=== PATIENT | female | born 1935 | race Caucasian/White ===

== ENCOUNTER → 2018-02-20 | Outpatient (CLI) | payer MEDICARE, OTHER ==
[~2018-02-20] MED LIST: AMLO5 PO; ASPI325 PO; CALCA500S6; GLUC500; HYDCHL25 PO; Hydroxychloroq200 MG PO; LEVSOD50 PO; LIDO2TG30 TOP; METO100ER PO; Nitrostat0.4 MG SL; PRED5 PO; SIMV40 PO; [UNRECOGNIZED DRUG - CODE]
[2018-02-22 15:07] LABS: HPV 16 Negative (Negative); HPV 18 Negative (Negative); HPV OTHER HR TYPES Positive (Negative)
== END | disposition home or self-care (01) ==
LOC: LAB SHORT 14:41 → LAB 14:41
PROVIDERS: Nurse Practitioner Obstetrics & Gynecology
DX: Z01.419 Encounter for gynecological examination (general) (routine) without abnormal findings (principal)
CPT/HCPCS: 87624; G0123

== ENCOUNTER → 2018-03-27 | Outpatient (CLI) | payer MEDICARE, OTHER | END | disposition home or self-care (01) | LOC: LAB SHORT 10:01 → LAB 10:01 | DX: N76.0 Acute vaginitis (principal); N90.9 Noninflammatory disorder of vulva and perineum, unspecified | CPT/HCPCS: 87070; 87205; 87529 ==

== ENCOUNTER → 2018-04-08 | Outpatient (CLI) | payer MEDICARE, OTHER | END | disposition home or self-care (01) | LOC: LAB SHORT 12:37 → PLD 12:37 | DX: L30.8 Other specified dermatitis (principal) | CPT/HCPCS: 88305; 88312 ==

== ENCOUNTER 2018-06-28 06:55 | Day surgery (SDC) | payer MEDICARE, OTHER ==
[~2018-06-28] VITALS: Ht 160 cm; Wt 86.5 kg
--- NOTE | 2018-06-28 07:46 | NUR ---
06/28/18 0746 Cheryl Washington 2 MISSED IV INRH BY KENNETH VEIN BLEW 1 GOOD IV IN RAC BY KENNETH PT TOW
== END 2018-06-28 09:00 | disposition home or self-care (01) ==
LOC: ORSCSDS 06:55
PROVIDERS: Internal Medicine Gastroenterology
PROC: 0DB68ZX Excision of Stomach, Via Natural or Artificial Opening Endoscopic, Diagnostic (ICD-10-PCS; principal; 2018-06-28 08:15)
DX: K31.89 Other diseases of stomach and duodenum (principal); K29.70 Gastritis, unspecified, without bleeding; K31.7 Polyp of stomach and duodenum; K44.9 Diaphragmatic hernia without obstruction or gangrene; I10 Essential (primary) hypertension; E03.9 Hypothyroidism, unspecified; Z79.82 Long term (current) use of aspirin; Z79.899 Other long term (current) drug therapy
CPT/HCPCS: J0330; J0461; J1980; J2405; J2704; J7120

== ENCOUNTER → 2018-07-10 | Outpatient (CLI) | payer MEDICARE, OTHER | LOC: LAB 16:24 → LAB SHORT 16:24 | DX: N76.3 Subacute and chronic vulvitis (principal) | CPT/HCPCS: 87070; 87205 ==

== ENCOUNTER 2019-07-14 09:11 | Inpatient (IN) | payer MEDICARE, OTHER ==
[~2019-07-14] VITALS: Ht 160 cm; Wt 92.1 kg
[~2019-07-14 09:11] MED LIST changes: -AMLO5 PO; -LEVSOD50 PO; -SIMV40 PO
[2019-07-14] MEDS ORDERED: Acetaminophen-1 EAC2 PO (09:25)
[2019-07-14 10:06] LABS: Hematocrit 29.5 % (33.0-51.0); Hemoglobin 9.8 g/dL (11.5-16.0); Mean Corpuscular HGB 33.9 pg (26.0-34.0); Mean Corpuscular HGB Conc 33.2 g/dL (31.5-36.5); Mean Corpuscular Volume 102 fL (80-100); Mean Platelet Volume 10.5 fL (9.1-12.4); NRBC ABSOLUTE 0.11 K/mm3 (0.00-0.02); NRBC Auto 1.2 /100 WBC (0.0-0.2); Platelet Count 240 K/mm3 (150-400); RDW Coefficient Variation 16.4 % (11.7-14.2); RDW Standard Deviation 59.7 fL (35.1-46.3); Red Blood Cell Count 2.89 M/mm3 (3.80-5.20); White Blood Cell Count 9.32 K/mm3 (4.00-11.30)
[2019-07-14 10:19] LABS: Source, Urine Clean Catch
[2019-07-14 10:21] LABS: Alanine Aminotransfer (ALT/SGP 106 U/L (12-78); Albumin, Blood 2.1 g/dL (3.4-5.0); Albumin/Globulin Ratio 0.6 (0.8-1.8); Alk Phos 59 U/L (50-136); Anion Gap 9 mmol/L (6-16); Aspartate Aminotrans (AST/SGOT 89 U/L (12-37); Bilirubin, Total 0.4 mg/dL (0.1-1.0); Blood Urea Nitrogen 14 mg/dL (8-24); Bun/Creatinine Ratio 24.1 (12.0-20.0); CO2, Blood 23 mmol/L (21-32); Calcium, Blood 8.9 mg/dL (8.5-10.1); Chloride, Blood 91 mmol/L (98-108); Creatinine, Blood 0.58 mg/dL (0.40-1.00); Globulin, Blood 3.5 g/dL (2.2-4.0); Glomerular Filtration Rate >60 (60-); Glucose, Blood 91 mg/dL (70-99); Potassium, Blood 4.5 mmol/L (3.5-5.5); Sodium, Blood 123 mmol/L (136-145); Total Protein, Blood 5.6 g/dL (6.4-8.2); Troponin I 0.047 ng/mL (0.000-0.040)
[2019-07-14 10:25] LABS: Bilirubin, Urine Neg (Neg); Blood, Urine 3+ (Neg); Glucose Qualitative, Urine Neg (Neg); Ketones, Urine Neg (Neg); Leukocyte Esterase, Urine 1+ (Neg); Nitrite, Urine Neg (Neg); Protein, Urine 2+ (Neg); Urobilinogen, Urine NORM (Normal)
[2019-07-14 10:29] LABS: BAND PERCENT MAN 6 % (0-8); BASOPHILS PERCENT MAN 0 % (0-2); EOSINOPHILS PERCENT MAN 0 % (0-6); LYMPHOCYTES ABSOLUTE MAN 2.23 K/mm3 (0.84-5.20); LYMPHOCYTES PERCENT MAN 24 % (21-46); METAMYELOCYTE ABSOLUTE MAN 0.09 K/mm3 (0.00-0.00); METAMYELOCYTE PERCENT MAN 1 % (0-0); MONOCYTES ABSOLUTE MAN 0.93 K/mm3 (0.16-1.47); MONOCYTES PERCENT MAN 10 % (4-13); MYELOCYTE ABSOLUTE MAN 0.37 K/mm3 (0.00-0.00); MYELOCYTE PERCENT MAN 4 % (0-0); NEUTROPHILS ABSOLUTE MAN 5.68 K/mm3 (1.96-9.15); SEG NEUTROPHILS PERCENT MAN 55 % (41-73); TOTAL CELLS COUNTED 100
[2019-07-14 10:36] LABS: Appearance, Urine Clear (Clear); Color, Urine Yellow (P-Yellow)
[2019-07-14 10:37] LABS: Bacteria Rare /hpf; Squamous Epithelial Cells Rare /hpf (Few); White Blood Cells, Urine Not Seen /hpf (0-5)
[2019-07-14] MEDS ORDERED: OXYC5 PO (12:00)
[2019-07-14] MEDS ORDERED: Fentanyl1 EACH TOP (12:01)
[2019-07-14] MEDS ORDERED: Methotrexate2.5 MG PO (12:02)
[2019-07-14] MEDS ORDERED: FOLI1 PO (12:03)
[2019-07-14] MEDS ORDERED: TELMISARTAN40 MG PO (12:04)
[2019-07-14] MEDS ORDERED: AMLO5 PO (12:04)
[2019-07-14] MEDS ORDERED: HYDCHL25 PO (12:05)
[2019-07-14] MEDS ORDERED: EUTHYROX50 MCG PO (12:06)
[2019-07-14] MEDS ORDERED: Simvastatin40 MG PO (12:06)
[2019-07-14] MEDS ORDERED: Prednisone10 MG PO (12:19)
[2019-07-14 12:51] LABS: Adenovirus Not Detected (NOT DETECT); Bordetella pertussis Not Detected (NOT DETECT); Chlamydophila pneumoniae Not Detected (NOT DETECT); Coronavirus 229E Not Detected (NOT DETECT); Coronavirus HKU1 Not Detected (NOT DETECT); Coronavirus NL63 Not Detected (NOT DETECT); Coronavirus OC43 Not Detected (NOT DETECT); Human Metapneumovirus Not Detected (NOT DETECT); Human Rhinovirus/Enterovirus Not Detected (NOT DETECT); Influenza A/2009-H1 Not Detected (NOT DETECT); Influenza A/H1 Not Detected (NOT DETECT); Influenza A/H3 Not Detected (NOT DETECT); Influenza B Not Detected (NOT DETECT); Mycoplasma pneumoniae Not Detected (NOT DETECT); Parainfluenza Virus 1 Not Detected (NOT DETECT); Parainfluenza Virus 2 Not Detected (NOT DETECT); Parainfluenza Virus 3 Not Detected (NOT DETECT); Parainfluenza Virus 4 Not Detected (NOT DETECT); Respiratory Syncytial Virus Not Detected (NOT DETECT)
[2019-07-14 16:29] LABS: Potassium, Blood 4.7 mmol/L (3.5-5.5); Uric Acid, Blood 6.8 mg/dL (2.6-6.0)
--- NOTE | 2019-07-14 17:39 | NUR ---
echocardiogram complete
--- NOTE | 2019-07-14 17:52 | NUR ---
SHIFT SUMMARY: ADMIT FROM ER DURING SHIFT. PLACED ON ENHANCED PRECAUTIONS FOR PENDING COVID TEST. A/A/OX4. REPORTS HX OF LUPUS WITH SKIN BLISTERS FROM LUPUS. LARGE ULCERATIONS ON ADRIANNA AREA EXTENDING BILATERALLY TO THIGHS. CARTWRIGHT IN PLACE FROM ED DUE TO INCONTINANCE TO KEEP URINE OUT OF AREA. CARTWRIGHT DRAINING CLEAR URINE. 6L 02 VIA NC TO KEEP SATS ABOVE 94%. WILL CONTINUE TO MONITOR UNTIL SHIFT CHANGE.
[2019-07-15 06:25] LABS: Hematocrit 32.2 % (33.0-51.0); Hemoglobin 10.5 g/dL (11.5-16.0); Mean Corpuscular HGB 33.7 pg (26.0-34.0); Mean Corpuscular HGB Conc 32.6 g/dL (31.5-36.5); Mean Corpuscular Volume 103 fL (80-100); NRBC ABSOLUTE 0.18 K/mm3 (0.00-0.02); NRBC Auto 1.6 /100 WBC (0.0-0.2); Platelet Count 270 K/mm3 (150-400); RDW Coefficient Variation 16.9 % (11.7-14.2); RDW Standard Deviation 62.1 fL (35.1-46.3); Red Blood Cell Count 3.12 M/mm3 (3.80-5.20); White Blood Cell Count 11.51 K/mm3 (4.00-11.30)
[2019-07-15 07:01] LABS: BAND PERCENT MAN 12 % (0-8); BASOPHILS PERCENT MAN 0 % (0-2); EOSINOPHILS ABSOLUTE MAN 0.57 K/mm3 (0.00-0.68); EOSINOPHILS PERCENT MAN 5 % (0-6); LYMPHOCYTES ABSOLUTE MAN 1.72 K/mm3 (0.84-5.20); LYMPHOCYTES PERCENT MAN 15 % (21-46); METAMYELOCYTE ABSOLUTE MAN 0.34 K/mm3 (0.00-0.00); METAMYELOCYTE PERCENT MAN 3 % (0-0); MONOCYTES ABSOLUTE MAN 1.26 K/mm3 (0.16-1.47); MONOCYTES PERCENT MAN 11 % (4-13); MYELOCYTE ABSOLUTE MAN 0.34 K/mm3 (0.00-0.00); MYELOCYTE PERCENT MAN 3 % (0-0); NEUTROPHILS ABSOLUTE MAN 7.25 K/mm3 (1.96-9.15); SEG NEUTROPHILS PERCENT MAN 51 % (41-73); TOTAL CELLS COUNTED 100
--- NOTE | 2019-07-15 07:26 | NUR ---
SHIFT SUMMARY NO ACUTE CHANGES NOTED THROUGH THE NIGHT. PT REMAINS ON 6 L VIA NC, O2 SATS >91%. PT ENC TO DEEP BREATH & COUGH, SHE STATES IT HURTS HER WOUNDS SO SHE DOES NOT WANT TO. PT EDUCATION & ENC PROVIDED PRN. ADRIANNA WOUNDS CLEANSED WITH WOUND TERMINAL SUPERINTENDENT THIS AM, SILVADINE CREAM APPLIED PER EMAR. PT IS REFUSING TO BE TURNED Q2 HRS DESPITE EDUCATION. PAIN MEDICATED PER EMAR. CARTWRIGHT REMAINS PATENT, BELOW BLADDER, DRAINING CLEAR,YELLOW URINE. REPORT GIVEN TO DAY RN, CALL LIGHT IN REACH.
[2019-07-15 08:19] LABS: Alanine Aminotransfer (ALT/SGP 94 U/L (12-78); Albumin, Blood 2.2 g/dL (3.4-5.0); Albumin/Globulin Ratio 0.6 (0.8-1.8); Alk Phos 66 U/L (50-136); Anion Gap 8 mmol/L (6-16); Aspartate Aminotrans (AST/SGOT 58 U/L (12-37); Bilirubin, Total 0.4 mg/dL (0.1-1.0); Blood Urea Nitrogen 13 mg/dL (8-24); Bun/Creatinine Ratio 18.4 (12.0-20.0); CO2, Blood 24 mmol/L (21-32); Calcium, Blood 8.9 mg/dL (8.5-10.1); Chloride, Blood 93 mmol/L (98-108); Creatinine, Blood 0.71 mg/dL (0.40-1.00); Globulin, Blood 3.6 g/dL (2.2-4.0); Glomerular Filtration Rate >60 (60-); Glucose, Blood 76 mg/dL (70-99); Magnesium, Blood 1.8 mg/dL (1.6-2.4); Potassium, Blood 4.7 mmol/L (3.5-5.5); Sodium, Blood 125 mmol/L (136-145); Total Protein, Blood 5.8 g/dL (6.4-8.2); Troponin I 0.048 ng/mL (0.000-0.040)
--- NOTE | 2019-07-15 17:30 | NUR ---
SHIFT SUMMARY: PT ALERT AND ORIENTED TO BASELINE, COVID TESTING STILL PENDING AT THIS TIME. PT ON IV AND ORAL ABO FOR VIRAL PNA. PT CURRENTLY ON 4L OF O2 VIA NC PT SATS ABOVE 94%, SLIGHT WHEEZING UPON EXPIRATION, LASIX 40 MG GIVEN X 1 DOSE. SLIGHT SOB WITH EXERTION. THE REST OF THE VITALS STABLE, AFEBRILE. PT HAS BEEN C/O A LOT OF PAIN NEW ORDER FOR TORADOL RECEIVED Q12 HRS X 3DAYS, AND WAS EFFECTIVE, PT HAS BEEN RESTING A LOT SINCE THE LAST ADMINISTRATION, PT STATED HER PAIN MOSTLY IN THE GROIN AND THE ULCER ON THE RIGHT MIDDLE FINGER. PT CATHETER DRAINING VIA GRAVITY, URINE JULES YELLOW IN COLOR. PT HAS BEEN RESTING IN BED, ABLE TO MAKE NEEDS KNOWN, COOPERATIVE WITH CARES. CALL LIGHTS WITHIN REACH WILL MONITOR
[2019-07-16 04:32] LABS: Hematocrit 29.5 % (33.0-51.0); Hemoglobin 9.7 g/dL (11.5-16.0); Mean Corpuscular HGB 33.7 pg (26.0-34.0); Mean Corpuscular HGB Conc 32.9 g/dL (31.5-36.5); Mean Corpuscular Volume 102 fL (80-100); Mean Platelet Volume 10.2 fL (9.1-12.4); NRBC ABSOLUTE 0.05 K/mm3 (0.00-0.02); NRBC Auto 0.5 /100 WBC (0.0-0.2); Platelet Count 273 K/mm3 (150-400); RDW Coefficient Variation 17.1 % (11.7-14.2); RDW Standard Deviation 63.2 fL (35.1-46.3); Red Blood Cell Count 2.88 M/mm3 (3.80-5.20); White Blood Cell Count 10.84 K/mm3 (4.00-11.30)
[2019-07-16 04:54] LABS: Alanine Aminotransfer (ALT/SGP 73 U/L (12-78); Albumin, Blood 1.9 g/dL (3.4-5.0); Albumin/Globulin Ratio 0.6 (0.8-1.8); Alk Phos 62 U/L (50-136); Anion Gap 7 mmol/L (6-16); Aspartate Aminotrans (AST/SGOT 45 U/L (12-37); Bilirubin, Total 0.4 mg/dL (0.1-1.0); Blood Urea Nitrogen 14 mg/dL (8-24); Bun/Creatinine Ratio 20.7 (12.0-20.0); CO2, Blood 26 mmol/L (21-32); Calcium, Blood 8.5 mg/dL (8.5-10.1); Chloride, Blood 93 mmol/L (98-108); Creatinine, Blood 0.68 mg/dL (0.40-1.00); Glomerular Filtration Rate >60 (60-); Glucose, Blood 75 mg/dL (70-99); Potassium, Blood 4.4 mmol/L (3.5-5.5); Sodium, Blood 126 mmol/L (136-145); Total Protein, Blood 4.9 g/dL (6.4-8.2)
[2019-07-16 04:59] LABS: Percent Saturation 9.8 % (15.0-50.0)
--- NOTE | 2019-07-16 06:11 | NUR ---
SHIFT SUMMARY NO ACUTE CHANGES NOTED THROUGH THE NIGHT. VSS, O2 SATS >94% ON 4L VIA NC. COUGH/DB ENC. PAIN MEDICATED PER EMAR. ADRIANNA/FINGER WOUNDS CLEANSED DRESSED, PT CONSENT SIGNED, PICTURES TAKEN & PLACED IN THE CHART. PT IS TOLERATING PO INTAKE. CARTWRIGHT REMAINS PATENT, BELOW BLADDER DRAINING CLEAR YELLOW URINE. CALL LIGHT IN REACH. WCTM
[2019-07-16 06:29] LABS: BAND PERCENT MAN 11 % (0-8); BASOPHILS ABSOLUTE MAN 0.21 K/mm3 (0.00-0.23); BASOPHILS PERCENT MAN 2 % (0-2); EOSINOPHILS ABSOLUTE MAN 0.43 K/mm3 (0.00-0.68); EOSINOPHILS PERCENT MAN 4 % (0-6); LYMPHOCYTES % ATYPICAL MANUAL 1 % (0-0); LYMPHOCYTES ABSOLUTE MAN 1.51 K/mm3 (0.84-5.20); LYMPHOCYTES PERCENT MAN 13 % (21-46); METAMYELOCYTE ABSOLUTE MAN 0.43 K/mm3 (0.00-0.00); METAMYELOCYTE PERCENT MAN 4 % (0-0); MONOCYTES ABSOLUTE MAN 0.65 K/mm3 (0.16-1.47); MONOCYTES PERCENT MAN 6 % (4-13); MYELOCYTE ABSOLUTE MAN 0.32 K/mm3 (0.00-0.00); MYELOCYTE PERCENT MAN 3 % (0-0); NEUTROPHILS ABSOLUTE MAN 7.26 K/mm3 (1.96-9.15); SEG NEUTROPHILS PERCENT MAN 56 % (41-73); TOTAL CELLS COUNTED 100
--- NOTE | 2019-07-16 15:00 | NUR ---
PT STATUS CHANGED TO MEDICAL WITH NO TELE. PT TRANSFERRED TO 335 REPORT GIVEN TO BRENDA HORNER RN. PT TELE DISCONTINUED, ALL BELONGINGS SENT WITH PATIENT. PT WORKED WITH THERAPY TODAY MANAGED TO STAND UP AND TRANSFER VIA WALKER TO CHAIR, BUT WAS NOT COMFORTABLE IN CHAIR DUE TO PAIN, PT WAS ALSO TITRATED ON 2L OF 02, SATS BEEN ABOVE 92%, AFTER WORKING WITH THERAPY PT HAD HER O2 OFF AND DESATS BELOW 80'S WENT RIGHT BACK UP AFTER O2 ADMINISTERED TO 90%. PT STILL C/ OF SOB WITH EXERTION AND PAIN, MORPHINE AND TYLENOL GIVEN FOR PAIN. ABLE TO MAKE NEEDS KNOWN COOPERATIVE WITH CARES.
--- NOTE | 2019-07-16 15:36 | NUR ---
PT ARRIVED TO THE UNIT AT 1530 VIA BE. CALL LIGHT WITHIN REACH, PT ORIENTED TO THE ROOM. PERSONAL BELONGINGS WITHIN REACH. PROVIDED WATER. NO OTHER NEEDS AT THIS TIME.
--- NOTE | 2019-07-17 02:12 | NUR ---
07/16/191934 PT RESTING COMFORTABLY IN BED; CHEERFUL.
--- NOTE | 2019-07-17 03:55 | NUR ---
SHIFT SUMMARY: 84 Y/O FEMALE RESTED COMFORTABLY ALL SHIFT; PT C/O GENERALIZED PAIN RATED 8/10 WITH MORPHINE SULFATE 2.5MG IVP GIVEN TWICE WITH GOOD RELIEF FELT; CARTWRIGHT DRAINING CLEAR YELLOW FLUID; ALERT AND ORIENTED X 4; BED ALARM APPLIED, BED LOW POSITION WITH CALL LIGHT AT SIDE.
[2019-07-17 05:50] LABS: Alanine Aminotransfer (ALT/SGP 78 U/L (12-78); Albumin, Blood 1.9 g/dL (3.4-5.0); Albumin/Globulin Ratio 0.5 (0.8-1.8); Alk Phos 70 U/L (50-136); Anion Gap 5 mmol/L (6-16); Aspartate Aminotrans (AST/SGOT 50 U/L (12-37); Bilirubin, Direct 0.1 mg/dL (0.0-0.3); Bilirubin, Indirect 0.5 mg/dL (0.1-0.7); Bilirubin, Total 0.6 mg/dL (0.1-1.0); Blood Urea Nitrogen 16 mg/dL (8-24); Bun/Creatinine Ratio 24.1 (12.0-20.0); CO2, Blood 28 mmol/L (21-32); Calcium, Blood 8.8 mg/dL (8.5-10.1); Chloride, Blood 95 mmol/L (98-108); Creatinine, Blood 0.66 mg/dL (0.40-1.00); Globulin, Blood 3.6 g/dL (2.2-4.0); Glomerular Filtration Rate >60 (60-); Glucose, Blood 87 mg/dL (70-99); Potassium, Blood 4.6 mmol/L (3.5-5.5); Sodium, Blood 128 mmol/L (136-145); Total Protein, Blood 5.5 g/dL (6.4-8.2)
--- NOTE | 2019-07-17 07:59 | NUR ---
SPOKE TO PT SISTER JOVANNY- SHE STATES SHE IS THE PT ONLY LIVING SIBLING REMAINING AND WOULD LIKE AN UPDATE TO THE PT CONDITION. UNABLE TO PROVIDE MUCH THIS RN ONLY ASSUMED CARE OF PT WITHIN THE LAST HOUR. SHE WOULD LIKE A CALL BACK FROM THE HOSPITALIST ONCE THEY HAVE SEEN THE PT, SO SHE CAN GET A BETTER IDEA OF HOW THE PT IS. SHE IS VERY CONCERNED SHE HAS NOT RECIEVED A CALL BACK FROM STAFF. PHONE NUMBER IS [phone]. CONFIRMED THE CONTACT NUMBER WITH HER WHEN SHE CALLED THIS MORNING.
--- NOTE | 2019-07-17 14:05 | NUR ---
CALLED AND SPOKE TO PT DAUGHTER LUCY. UPDATED HER ON THE PT STATUS. SHE STATED SHE HAS NOT BEEN ABLE TO REACH ANY MEDICAL STAFF SINCE THE PT WAS ADMITTED. PT IS CURRENTLY NOT WILLING TO WORK WITH PHYSICAL THERAPY WE ARE GOING TO REATTEMPT TO MOBILIZE THE PT THIS AFTERNOON.
--- NOTE | 2019-07-17 14:18 | NUR ---
SPOKE TO PT SISTER AGAIN SHE STILL HAS NOT HEARD FROM THE DR YET. UPDATED HER WITH THE CURRENT KNOWLEDGE FAR PAIN MANAGEMENT AND WOUNDS. TOLD HER THE DOCTOR IS AWARE SHE WANTED TO HEAR FROM HER. WILL CALL WITH ANY CHANGES IN PT STATUS.
--- NOTE | 2019-07-17 16:20 | NUR ---
SPOKE TO NURSING ADJUSTER PIANO [employer]- NO BLOW MOLD TECHNICIAN LISTED ON THE CALL SCHEDULE. PT SEES DR ROSA SOW AT [facility] [phone]. NOONE IN THEIR OFFICE HAS HOSPITAL PRIVILAGES. WILL SPEAK TO DR CHIRINOS TO DETERMINE WHICH BLOW MOLD TECHNICIAN SHE WANTS CALLED FOR CONSULT.
--- NOTE | 2019-07-17 17:03 | NUR ---
ATTEMPTED TO CALL DERMATOLOGY CONSULT BUT GOT AN ANSWERING MACHINE STATING THAT THE OFFICE IS NOW CLOSED NO ANSWERING SERVICE AVAILABLE. WILL REATTEMPT TOMORROW.
--- NOTE | 2019-07-17 17:30 | NUR ---
PER DR TARAN TURNER TO LEAVE CONSULT REQUEST ON ANSWERING MACHINE AT DR HERNANDEZ OFFICE. CONSULT CALLED MESSAGE LEFT.
--- NOTE | 2019-07-17 18:53 | NUR ---
SHIFT SUMMARY- PT MEDICATED FOR PAIN WITH IV MORPHINE REGULARLY T/O THE DAY. NO ACUTE CHANGES SINCE THE PREVIOUS NOTE. ALL CONSULTS WERE CALLED, SEE PREVIOUS NOTES FOR DETAILS. PT MEDICATED FOR PAIN AND NAUSEA PRIOR TO SHIFT CHANGE. FAMILY WAS CONTACTED BY DR CHIRINOS THIS EVENING AND UPDATED ON THE PT STATUS AND CURRENT PLAN OF CARE.
--- NOTE | 2019-07-17 19:00 | NUR ---
ASSUMED CARE RECEIVED REPORT FROM ZEESHAN ALONSO. ASSUMED CARE OF PT. RESTING COMFORTABLY AT THIS TIME, NO S/S ACUTE DISTRESS NOTED. DENIES NEEDS. CALL LIGHT,POSSESSIONS IN REACH, BED IN LOWEST POSITION WITH ALARM ON. WILL CONTINUE TO MONITOR.
[2019-07-18 05:19] LABS: Hematocrit 34.6 % (33.0-51.0); Hemoglobin 11.3 g/dL (11.5-16.0); Mean Corpuscular HGB 33.6 pg (26.0-34.0); Mean Corpuscular HGB Conc 32.7 g/dL (31.5-36.5); Mean Corpuscular Volume 103 fL (80-100); Mean Platelet Volume 9.9 fL (9.1-12.4); Platelet Count 346 K/mm3 (150-400); RDW Coefficient Variation 16.6 % (11.7-14.2); RDW Standard Deviation 62.1 fL (35.1-46.3); Red Blood Cell Count 3.36 M/mm3 (3.80-5.20); White Blood Cell Count 8.44 K/mm3 (4.00-11.30)
[2019-07-18 05:26] LABS: Albumin, Blood 2.1 g/dL (3.4-5.0); Anion Gap 7 mmol/L (6-16); Blood Urea Nitrogen 18 mg/dL (8-24); Bun/Creatinine Ratio 33.1 (12.0-20.0); CO2, Blood 26 mmol/L (21-32); Calcium, Blood 9.1 mg/dL (8.5-10.1); Chloride, Blood 95 mmol/L (98-108); Creatinine, Blood 0.54 mg/dL (0.40-1.00); Glomerular Filtration Rate >60 (60-); Glucose, Blood 146 mg/dL (70-99); Phosphorus, Blood 3.3 mg/dL (2.5-4.9); Potassium, Blood 4.9 mmol/L (3.5-5.5); Sodium, Blood 128 mmol/L (136-145)
[2019-07-18 06:05] LABS: BAND PERCENT MAN 8 % (0-8); BASOPHILS PERCENT MAN 0 % (0-2); EOSINOPHILS PERCENT MAN 0 % (0-6); LYMPHOCYTES ABSOLUTE MAN 1.18 K/mm3 (0.84-5.20); LYMPHOCYTES PERCENT MAN 14 % (21-46); METAMYELOCYTE ABSOLUTE MAN 0.08 K/mm3 (0.00-0.00); METAMYELOCYTE PERCENT MAN 1 % (0-0); MONOCYTES ABSOLUTE MAN 0.33 K/mm3 (0.16-1.47); MONOCYTES PERCENT MAN 4 % (4-13); MYELOCYTE ABSOLUTE MAN 0.33 K/mm3 (0.00-0.00); MYELOCYTE PERCENT MAN 4 % (0-0); NEUTROPHILS ABSOLUTE MAN 6.49 K/mm3 (1.96-9.15); SEG NEUTROPHILS PERCENT MAN 69 % (41-73); TOTAL CELLS COUNTED 100
--- NOTE | 2019-07-18 06:33 | NUR ---
SHIFT SUMMARY PT ASLEEP AT THIS TIME, NO S/S ACUTE DISTRESS NOTED. WAS MONITORED EVERY 1-2 HOURS WITH NEEDS MET. DENIES NEEDS AT THIS TIME. PT REFUSED REPOSITIONING T/O SHIFT, STATING IT'S UNCOMFORTABLE FOR HER TO TURN TO SIDE. PAIN AND NAUSEA CONTROLLED WITH UNINTERRUPTED REST AND MEDS PER EMAR. NO ACUTE EVENTS NOTED T/O NIGHT, VS STABLE. CALL LIGHT, POSSESSIONS IN REACH, BED IN LOWEST POSITION WITH ALARM ON. WILL CONTINUE TO MONITOR UNTIL DAY RN ASSUMES CARE.
--- NOTE | 2019-07-18 18:19 | NUR ---
SHIFT SUMMARY: A&O X 3, PLEASANT MOST OF THE DAY, ANXIOUS THIS MORNING WHEN PAIN WAS NOT WELL CONTROLLED. WOUND CARE PERFORMED THIS MORNING WAS QUITE PAINFUL FOR HER, BUT PAIN LEVEL DECREASED LATER IN THE DAY. LUNGS DIM THROUGHOUT, ON O2 @ 2 L/MIN NC. WAS ABLE TO STAND FOR A SHORT TIME WITH PHYSICAL THERAPY. THIS AUTHOR GAVE AN UPDATE TO PT'S SISTER JOVANNY OVER THE PHONE. CARTWRIGHT DRAINING ADEQUATE URINE; NO BM TODAY, REFUSED DOCUSATE AND MIRALAX THIS MORNING BUT REQUESTED DOCUSATE THIS AFTERNOON. AWAITING DERMATOLOGY CONSULT.
--- NOTE | 2019-07-18 22:05 | NUR ---
2130 THIS NURSE REMOVED OLD DRIED DRESSING TO RIGHT HAND, #3 DIGIT; NEW PHOTOS TAKEN; THIS NURSE HAD TO SOAK OLD DRESSING TO REMOVE IT; NON ADHESIVE OIL EMULSION, 4X4, KERLIX AND LEELA WRAP APPLIED TO SITE (BULKY DRESSING) WITH PATIENT TOLERATING PROCEDURE WELL. DAY SHIFT NURSE WILL BE ADVISED IN AM OF NEED FOR DRESSING CHANGE ORDERS REQUIRED.
--- NOTE | 2019-07-19 00:30 | NUR ---
PT NPO AFTER MIDNIGHT PENDING POSSIBLE SURGERY AM.
--- NOTE | 2019-07-19 04:08 | NUR ---
SHIFT SUMMARY: 84 Y/O FEMALE RESTED COMFORTABLY IN BED ALL SHIFT; C/O GROIN AND RIGHT HAND PAIN RATED 8/10 WITH MORPHINE SULFATE 2.5MG IVP GIVEN WITH RELIEF FELT; THIS NURSE REDRESSED PATIENTS RIGHT HAND EARLIER IN SHIFT (SEE NURSING NOTES); CARTWRIGHT DRAINING CLEAR YELLOW FLUID; ALERT AND ORIENTED X 4; BED LOW POSITION WITH CALL LIGHT AT SIDE.
[2019-07-19 16:07] LABS: Vancomycin, Trough 5.3 ug/mL (5.0-10.0)
--- NOTE | 2019-07-19 18:29 | NUR ---
SHIFT SUMMARY: PT A&O X4. 1 PERSON/SBA IN ROOM. VSS. PT AMBULATED IN HALLWAY WITH PT USING A WALKER. PT HAD BEDBATH TODAY AND WOUNDS IN ADRINANA AREA WERE CLEANED AND THERMAZENE CREAM WAS APPLIED. DRESSING ON RIGHT MIDDLE FINGER WAS ALSO CHANGED. SACRAL DRESSING APPLIED FOR PREVENTATIVE MEASURES. PT TAKEN OFF OF OXYGEN AND OXYGEN SATURATION DECREASED TO MID 80'S. PT PLACED BACK ON 2L OXYGEN VIA NC. PT MEDICATED THROUGHOUT SHIFT FOR PAIN REPORTED IN HER ADRIANNA AREA AND RIGHT MIDDLE FINGER.
--- NOTE | 2019-07-20 04:49 | NUR ---
SHIFT SUMMARY PT HAS RESTED WELL THIS SHIFT. RESP E/U ON 2L O2, SATS WNL. PT CONTINUES TO COMPLAIN OF PAIN FROM ADRIANNA WOUNDS AND PAIN FROM BLISTERING ON HER RIGHT 2ND FINGER. MEDICATED FOR PAIN PER EMAR. THERE ARE NO ACUTE CHANGES IN PT ASSESSMENT. BED IN LOWEST POSITION, CALL LIGHT WITHIN REACH. CARTWRIGHT IN PLACE DRAINING. WILL CONTINUE TO MONITOR AND REPORT TO ONCOMING RN.
[2019-07-20 16:24] LABS: Creatinine, Blood 0.56 mg/dL (0.40-1.00); Vancomycin, Trough 12.4 ug/mL (5.0-10.0)
--- NOTE | 2019-07-20 17:51 | NUR ---
SHE HAS HAD A PAINFUL DAY. HER FENTANYL PATCHES WERE CHANGED THIS EVENING. SHE HAS TAKEN OXYCODONE X2, AND WILL PROBABLY TAKE A 3RD DOSE BEFORE I LEAVE. SHE ALSO TOOK TYLENOL X1 IN BETWEEN. SHE HAD A COUPLE OF BM'S TODAY AND CARTWRIGHT DRAINS WELL. ULCERS IN PANUS, INNER THIGHS, AND PERIANAL AREAS CLEANED AFTER BM'S AND SILVADENE APPLIED. SHE EATS WELL. SHE C/O OXY UPSETTING HER STOMACH A LITTLE. ZOFRAN WAS GIVEN X1. MOSTLY SHE JUST LIKES SOMETHING WITH IT LIKE PUDDING, MILK OR APPLESAUCE. PT DID NOT WORK WITH HER TODAY, BEING SUNDAY. SCD'S ARE ON.IV ANTIBIOTICS CONTINUE. APICAL REMAINS REGULAR BUT IS A LITTLE TACHY.
--- NOTE | 2019-07-21 05:36 | NUR ---
SHIFT SUMMARY PT OVERALL HAS RESTED WELL THIS SHIFT. SHE CONTINUES TO COMPLAIN OF PAIN FROM HER ADRIANNA WOUNDS, MEDICATED PER EMAR WITH AFFECT. PT HAS OTHERWISE DENIED NEEDS MOST OF THE NIGHT. SHE HAD A BM THIS SHIFT. PT ADRIANNA WOUNDS HAVE SLOUGHING AND DRAINAGE, CLEANED WOUNDS THIS SHIFT. PT HAS NOT BEEN OOB THIS SHIFT. NO ACUTE CHANGES IN ASSESSMENT. VITALS STABLE. BED IN LOWEST POSITION, CALL LIGHT WITHIN REACH. WILL CONTINUE TO MONITOR AND REPORT TO ONCOMING RN.
[2019-07-21 16:26] LABS: Vancomycin, Trough 13.3 ug/mL (5.0-10.0)
--- NOTE | 2019-07-21 19:20 | NUR ---
SHIFT SUMMARY: NO ACUTE CHANGES TO REPORT THIS SHIFT. PT A&O; CALM AND COOPERATIVE WITH CARE. HX LUPUS; BULLUS PEMPHIGUS-MEDICATED FOR PAIN PER EMAR. CARTWRIGHT IN PLACE TO PROTECT PERIANAL WOUNDS; PATENT & DRAINING. PT ON O2 @ 2L; ROOM AIR @ BASELINE. DR HERNANDEZ (DERMATOLOGY) CONSULTED THIS SHIFT; MEDICAL RECORDS FROM DR SOW's OFFICE OBTAINED & FAXED TO DR HERNANDEZ's OFFICE; RECORDS ON CHART. IV ABX CONTINUING. REPORT GIVEN TO ONCOMING RN.
--- NOTE | 2019-07-22 03:54 | NUR ---
CALLED HOSPITALIST PT BP HAS BEEN TRENDING UP SINCE ADMIT, NOW 186/92. HOSPITALIST ORDERED PRN MED FOR BP > 160, SEE EMAR.
--- NOTE | 2019-07-22 04:56 | NUR ---
SHIFT SUMMARY ADMITTED FOR HYPOXIA- RESOLVED. FULL CODE. DERMATOLOGY CONSULT DR. HERNANDEZ IS FOLLOWING. ADRIANNA AREA IS INFLAMED AND EXCORIATED, POSSIBLY RELATED TO LUPUS. CARTWRIGHT IS IN PLACE. PT WOULD LIKE TO DC HOME W/HH. PHYSICAL THERAPY IS RECOMMENDING DC TO SNF. SHE IS A 1 ASSIST W/FWW. HER BLOOD PRESSURE HAS BEEN UPTRENDING SINCE ADMIT. I CALLED HOSPITALIST RE: SBP 186/92. EMAR NOW HAS PRN HYDRALAZINE AVAILABLE WHICH WAS EFFECTIVE FOR THIS PT. 2 LPM O2 VIA NC IS HER BASELINE. 2 G LOW NA+ DIET. SHE IS A&O X4
[2019-07-22 05:48] LABS: Alanine Aminotransfer (ALT/SGP 149 U/L (12-78); Albumin, Blood 2.6 g/dL (3.4-5.0); Albumin/Globulin Ratio 0.6 (0.8-1.8); Alk Phos 74 U/L (50-136); Anion Gap 8 mmol/L (6-16); Aspartate Aminotrans (AST/SGOT 45 U/L (12-37); Bilirubin, Total 0.5 mg/dL (0.1-1.0); Blood Urea Nitrogen 23 mg/dL (8-24); Bun/Creatinine Ratio 48.8 (12.0-20.0); CO2, Blood 25 mmol/L (21-32); Calcium, Blood 9.2 mg/dL (8.5-10.1); Chloride, Blood 97 mmol/L (98-108); Creatinine, Blood 0.47 mg/dL (0.40-1.00); Glomerular Filtration Rate >60 (60-); Glucose, Blood 100 mg/dL (70-99); Sodium, Blood 130 mmol/L (136-145); Total Protein, Blood 6.6 g/dL (6.4-8.2)
--- NOTE | 2019-07-22 16:28 | NUR ---
SHIFT SUMMARY PT AXO, PLEASANT AND COOPERATIVE WITH CARE, PATIENT PAINFUL WITH MOVEMENT AND WOUND CARE PER ORDERS. PAIN DOWN TO 2/10 WITH REST AND MEDICATION. PT REFUSED OOB TODAY AND PHYSICAL THERAPY R/T NAUSEA AND PAIN BOTH RESOLVING. VSS. NO ACUTE CHANGES THIS SHIFT. IV PATENT AND SALINE LOCKED. BED IN LOW POSITION, CALL LIGHT WITHIN REACH. PT HESITANT TO BE DISCHARGED, STATES SHE WANTS A PLAN IN PLACE WITH DR. HERNANDEZ PRIOR TO DC.
--- NOTE | 2019-07-23 04:52 | NUR ---
SHIFT SUMMARY ADMITTED FOR HYPOXIA - RESOLVED. FULL CODE. DERMATOLOGY CONSULT DR HERNANDEZ. ADRIANNA AREA IS INFLAMED AND EXCORIATED. SUSPICION THAT LUPUS MAY BE CAUSING THE SKIN ISSUES. SHE IS ON 2 LPM O2 VIA NC AT BASELINE. CARTWRIGHT IS IN PLACE DUE TO HER SKIN CONDITION. SHE WANTS TO DC W/HH, PT RECOMMENDS DC TO SNF DUE TO WOUND CARE NEEDS. PHYSICAL & OCCUPATIONAL THERAPY IS WORKING WITH THIS PT, SHE IS 1 ASSIST W/FWW. NO NEW CONCERNS.
[2019-07-23 04:57] LABS: BASOPHILS ABSOLUTE AUTO 0.06 K/mm3 (0.00-0.23); BASOPHILS PERCENT AUTO 1 % (0-2); EOSINOPHILS ABSOLUTE AUTO 0.11 K/mm3 (0.00-0.68); EOSINOPHILS PERCENT AUTO 1 % (0-6); Hemoglobin 11.2 g/dL (11.5-16.0); IMMATURE GRAN ABSOLUTE AUTO 0.69 K/mm3 (0.00-0.10); IMMATURE GRAN PERCENT AUTO 6 % (0-1); LYMPHOCYTES ABSOLUTE AUTO 3.58 K/mm3 (0.84-5.20); LYMPHOCYTES PERCENT AUTO 29 % (21-46); MONOCYTES ABSOLUTE AUTO 1.56 K/mm3 (0.16-1.47); MONOCYTES PERCENT AUTO 13 % (4-13); Mean Corpuscular HGB 33.2 pg (26.0-34.0); Mean Corpuscular Volume 104 fL (80-100); Mean Platelet Volume 9.2 fL (9.1-12.4); NEUTROPHILS ABSOLUTE AUTO 6.46 K/mm3 (1.96-9.15); NEUTROPHILS PERCENT AUTO 52 % (41-73); Platelet Count 393 K/mm3 (150-400); RDW Coefficient Variation 15.5 % (11.7-14.2); Red Blood Cell Count 3.37 M/mm3 (3.80-5.20); White Blood Cell Count 12.46 K/mm3 (4.00-11.30)
[2019-07-23 05:17] LABS: Alanine Aminotransfer (ALT/SGP 118 U/L (12-78); Albumin, Blood 2.5 g/dL (3.4-5.0); Albumin/Globulin Ratio 0.7 (0.8-1.8); Alk Phos 66 U/L (50-136); Anion Gap 9 mmol/L (6-16); Aspartate Aminotrans (AST/SGOT 39 U/L (12-37); Bilirubin, Total 0.4 mg/dL (0.1-1.0); Blood Urea Nitrogen 21 mg/dL (8-24); CO2, Blood 25 mmol/L (21-32); Calcium, Blood 9.3 mg/dL (8.5-10.1); Chloride, Blood 97 mmol/L (98-108); Creatinine, Blood 0.51 mg/dL (0.40-1.00); Globulin, Blood 3.6 g/dL (2.2-4.0); Glomerular Filtration Rate >60 (60-); Glucose, Blood 80 mg/dL (70-99); Potassium, Blood 4.2 mmol/L (3.5-5.5); Sodium, Blood 131 mmol/L (136-145); Total Protein, Blood 6.1 g/dL (6.4-8.2)
[2019-07-23 05:25] LABS: BAND PERCENT MAN 3 % (0-8); BASOPHILS PERCENT MAN 0 % (0-2); EOSINOPHILS ABSOLUTE MAN 0.12 K/mm3 (0.00-0.68); EOSINOPHILS PERCENT MAN 1 % (0-6); LYMPHOCYTES ABSOLUTE MAN 3.36 K/mm3 (0.84-5.20); LYMPHOCYTES PERCENT MAN 27 % (21-46); METAMYELOCYTE ABSOLUTE MAN 0.24 K/mm3 (0.00-0.00); METAMYELOCYTE PERCENT MAN 2 % (0-0); MONOCYTES ABSOLUTE MAN 1.24 K/mm3 (0.16-1.47); MONOCYTES PERCENT MAN 10 % (4-13); NEUTROPHILS ABSOLUTE MAN 7.47 K/mm3 (1.96-9.15); SEG NEUTROPHILS PERCENT MAN 57 % (41-73); TOTAL CELLS COUNTED 100
--- NOTE | 2019-07-23 07:15 | NUR ---
ASSUMED PATIENT CARE. PATIENT RESTING COMFORTABLY IN BED, CONVERSING WITH NURSING STAFF. NO SIGNS OF ACUTE DISTRESS, WCTM.
[2019-07-23] MEDS ORDERED: ACET325 PO ×2 (13:28→13:36)
[2019-07-23] MEDS ORDERED: Augmentin 875-1 EACH PO (13:36)
[2019-07-23] MEDS ORDERED: ASCO500 PO (13:37)
[2019-07-23] MEDS ORDERED: DOCU100 PO (13:38)
[2019-07-23] MEDS ORDERED: CYAFAPYR PO (13:39)
[2019-07-23] MEDS ORDERED: VISBIOME 112.51 EACH PO (13:40)
[2019-07-23] MEDS ORDERED: PANT40 PO (13:43)
[2019-07-23] MEDS ORDERED: MIRALAX119 GM PO (13:44)
[2019-07-23] MEDS ORDERED: LIQUACEL 100 LI30 ML PO (13:45)
[2019-07-23] MEDS ORDERED: Silvadene20 GM TOP (13:45)
[2019-07-23] MEDS ORDERED: ZINC220 PO (13:45)
--- NOTE | 2019-07-23 13:50 | NUR ---
REPORT GIVEN TO ZEESHAN WOODS AT [facility]. REPORT GIVEN TO EMS FOR TRANSFER. PATIENT LEFT WITH NO SIGNS OF ACUTE DISTRESS.
== END 2019-07-23 13:49 | DRG 871 ==
LOC: ER 09:11 → MEDS 12:17 → PCU 12:17 → MEDS 07-16 15:01 → ENPENDDIS 07-23 10:00 → MEDS 07-23 13:49
PROVIDERS: Internal Medicine; Pharmacist; Physician Assistant; ADMIT Internal Medicine
PROC: 8E0ZXY6 Isolation (ICD-10-PCS; principal; 2019-07-14)
DX: A41.81 Sepsis due to Enterococcus (principal); J18.9 Pneumonia, unspecified organism; J96.21 Acute and chronic respiratory failure with hypoxia; E87.1 Hypo-osmolality and hyponatremia; L97.901 Non-pressure chronic ulcer of unspecified part of unspecified lower leg limited to breakdown of skin; L12.0 Bullous pemphigoid; M80.88XA Other osteoporosis with current pathological fracture, vertebra(e), initial encounter for fracture; Z79.82 Long term (current) use of aspirin; Z86.73 Personal history of transient ischemic attack (TIA), and cerebral infarction without residual deficits; E03.9 Hypothyroidism, unspecified; E78.5 Hyperlipidemia, unspecified; I10 Essential (primary) hypertension; M19.90 Unspecified osteoarthritis, unspecified site; Z87.891 Personal history of nicotine dependence; L93.0 Discoid lupus erythematosus; D63.8 Anemia in other chronic diseases classified elsewhere; R74.0 Nonspecific elevation of levels of transaminase and lactic acid dehydrogenase [LDH]; T45.1X5A Adverse effect of antineoplastic and immunosuppressive drugs, initial encounter; Y92.9 Unspecified place or not applicable; T38.0X5A Adverse effect of glucocorticoids and synthetic analogues, initial encounter; L89.302 Pressure ulcer of unspecified buttock, stage 2; L89.892 Pressure ulcer of other site, stage 2
CPT/HCPCS: 0099U; 36415; 51702; 71046; 71260; 80048; 80051; 80053; 80069; 80076; 80202; 81001; 82565; 82607; 82728; 82746; 83540; 83550; 83605; 83735; 83930; 83935; 84145; 84300; 84484; 84550; 85025; 85379; 87070; 87075; 87076; 87077; 87185; 87186; 87205; 93306; 94762; 96361-59; 96374-59; 97110; 97116; 97162; 97530; 99285-25; A9270; A9270-GY; J0360; J0456; J0696; J1650; J1885; J1940; J2270; J2405; J2920; J3370; J7030; J7050; J7512; Q9967; U0003

== ENCOUNTER 2019-11-05 12:58 | Observation (INO) | payer MEDICARE, OTHER ==
[~2019-11-05] VITALS: Ht 167.6 cm; Wt 99.8 kg
[~2019-11-05 12:58] MED LIST changes: -ALOCANE EMERGEN75 ML; -ANTIFUNGAL30 GM TOP; -ASCO500 PO; -Cellcept500 MG PO; -DOCU100 PO; -EUTHYROX50 MCG PO; -FAMO20 PO; -GABA400 PO; -OXYC10TA19 PO; -PANT40 PO; -PRED20 PO; -TELMISARTAN40 MG PO; -Vitamin D2000 UNIT PO; -ZINC SULFATE PO; -[UNRECOGNIZED DRUG - SUPPLY]
[2019-11-05] MEDS ORDERED: Cellcept500 MG PO (16:21)
[2019-11-05] MEDS ORDERED: OXYC10TA19 PO (16:22)
[2019-11-05] MEDS ORDERED: PRED20 PO (16:22)
[2019-11-05] MEDS ORDERED: PANT40 PO (16:23)
[2019-11-05] MEDS ORDERED: EUTHYROX50 MCG PO (16:23)
[2019-11-05] MEDS ORDERED: HYDCHL25 PO (16:24)
[2019-11-05] MEDS ORDERED: TELMISARTAN40 MG PO (17:19)
[2019-11-05] MEDS ORDERED: ASCO500 PO (17:20)
[2019-11-05] MEDS ORDERED: DOCU100 PO ×2 (17:20→17:22)
[2019-11-05] MEDS ORDERED: ZINC SULFATE PO (17:21)
[2019-11-05] MEDS ORDERED: FOLI1 PO (17:24)
[2019-11-05] MEDS ORDERED: Vitamin D2000 UNIT PO (17:25)
[2019-11-05] MEDS ORDERED: FAMO20 PO (17:25)
[2019-11-05 18:24] LABS: BASOPHILS ABSOLUTE AUTO 0.06 K/mm3 (0.00-0.23); BASOPHILS PERCENT AUTO 0 % (0-2); EOSINOPHILS ABSOLUTE AUTO 0.16 K/mm3 (0.00-0.68); EOSINOPHILS PERCENT AUTO 1 % (0-6); Hematocrit 37.2 % (33.0-51.0); Hemoglobin 11.7 g/dL (11.5-16.0); IMMATURE GRAN ABSOLUTE AUTO 0.32 K/mm3 (0.00-0.10); IMMATURE GRAN PERCENT AUTO 1 % (0-1); LYMPHOCYTES ABSOLUTE AUTO 2.82 K/mm3 (0.84-5.20); LYMPHOCYTES PERCENT AUTO 11 % (21-46); MONOCYTES ABSOLUTE AUTO 1.76 K/mm3 (0.16-1.47); MONOCYTES PERCENT AUTO 7 % (4-13); Mean Corpuscular HGB 29.2 pg (26.0-34.0); Mean Corpuscular HGB Conc 31.5 g/dL (31.5-36.5); Mean Corpuscular Volume 93 fL (80-100); Mean Platelet Volume 9.3 fL (9.1-12.4); NEUTROPHILS ABSOLUTE AUTO 19.78 K/mm3 (1.96-9.15); NEUTROPHILS PERCENT AUTO 80 % (41-73); Platelet Count 364 K/mm3 (150-400); RDW Coefficient Variation 14.7 % (11.7-14.2); RDW Standard Deviation 50.3 fL (35.1-46.3); Red Blood Cell Count 4.01 M/mm3 (3.80-5.20)
--- NOTE | 2019-11-05 18:42 | NUR ---
ADMISSION PT ARRIVED TO ROOM 331 VIA GURNEY FROM ED. FOUR PERSON TRANSFER WITH SLIDER TO BED. PT JUST RECEIVED PAIN MEDICATIONS BEFORE ARRIVE. GABBIE PATENT PATENT AND DRAINING. THIS RN CALLED DR. PATEL TO ASK FOR A DIET ORDER BUT NO ANSWER. LEFT MESSAGE. CALL LIGHT IN REACH. WILL CONTINUE TO MONITOR AND REPORT TO ONCOMING RN.
[2019-11-05 18:44] LABS: International Normalized Ratio 0.95; Prothrombin Time Results 10.2 Sec (9.7-11.5)
[2019-11-05 18:47] LABS: Alanine Aminotransfer (ALT/SGP 28 U/L (12-78); Albumin, Blood 2.7 g/dL (3.4-5.0); Albumin/Globulin Ratio 0.7 (0.8-1.8); Alk Phos 63 U/L (50-136); Anion Gap 8 mmol/L (6-16); Aspartate Aminotrans (AST/SGOT 9 U/L (12-37); Bilirubin, Total 0.5 mg/dL (0.1-1.0); Blood Urea Nitrogen 16 mg/dL (8-24); Bun/Creatinine Ratio 28.2 (12.0-20.0); CO2, Blood 25 mmol/L (21-32); Chloride, Blood 99 mmol/L (98-108); Creatinine, Blood 0.57 mg/dL (0.40-1.00); Globulin, Blood 3.7 g/dL (2.2-4.0); Glomerular Filtration Rate >60 (60-); Glucose, Blood 119 mg/dL (70-99); Potassium, Blood 4.2 mmol/L (3.5-5.5); Sodium, Blood 132 mmol/L (136-145); Total Protein, Blood 6.4 g/dL (6.4-8.2)
[2019-11-05] MEDS ORDERED: ALOCANE EMERGEN75 ML (21:21)
[2019-11-05] MEDS ORDERED: ANTIFUNGAL30 GM TOP (21:22)
[2019-11-05] MEDS ORDERED: [UNRECOGNIZED DRUG - SUPPLY] (21:31)
--- NOTE | 2019-11-06 04:06 | NUR ---
SUMMARY PT HAD CONTINUED PAIN. PROVIDER ANAYA CALLED AND ORDERED FENTANYL, SILVADENE AND LIDOCAINE OINTMENT. PT RESPONDED WELL TO TX. PT HAS BEEN ABLE TO SLEEP W/ INCREASED RELIEF. PT HAS BEEN NPO SINCE MIDNIGHT. PT CURRENTLY SLEEPING AND IN NO DISTRESS. CALL LIGHT IN REACH.
[2019-11-06 04:23] LABS: Source, Urine Catheter
[2019-11-06 04:31] LABS: Bilirubin, Urine Neg (Neg); Blood, Urine 3+ (Neg); Glucose Qualitative, Urine Neg (Neg); Ketones, Urine Neg (Neg); Leukocyte Esterase, Urine 3+ (Neg); Nitrite, Urine Pos (Neg); Protein, Urine 1+ (Neg); Urobilinogen, Urine NORM (Normal)
[2019-11-06 04:39] LABS: Appearance, Urine Cloudy (Clear); Color, Urine Yellow (P-Yellow)
[2019-11-06 04:56] LABS: Amorphous Heavy (0-Heavy); Bacteria Many /hpf; Red Blood Cells, Urine 0-2 /hpf (0-2); Squamous Epithelial Cells Rare /hpf (Few); White Blood Cells, Urine TNTC /hpf (0-5)
[2019-11-06 06:22] LABS: BASOPHILS ABSOLUTE AUTO 0.05 K/mm3 (0.00-0.23); BASOPHILS PERCENT AUTO 0 % (0-2); EOSINOPHILS ABSOLUTE AUTO 0.01 K/mm3 (0.00-0.68); EOSINOPHILS PERCENT AUTO 0 % (0-6); Hematocrit 32.9 % (33.0-51.0); Hemoglobin 10.4 g/dL (11.5-16.0); IMMATURE GRAN ABSOLUTE AUTO 0.44 K/mm3 (0.00-0.10); IMMATURE GRAN PERCENT AUTO 2 % (0-1); LYMPHOCYTES ABSOLUTE AUTO 1.87 K/mm3 (0.84-5.20); LYMPHOCYTES PERCENT AUTO 9 % (21-46); MONOCYTES ABSOLUTE AUTO 0.41 K/mm3 (0.16-1.47); MONOCYTES PERCENT AUTO 2 % (4-13); Mean Corpuscular HGB 29.5 pg (26.0-34.0); Mean Corpuscular HGB Conc 31.6 g/dL (31.5-36.5); Mean Corpuscular Volume 93 fL (80-100); Mean Platelet Volume 9.7 fL (9.1-12.4); NEUTROPHILS ABSOLUTE AUTO 17.36 K/mm3 (1.96-9.15); NEUTROPHILS PERCENT AUTO 86 % (41-73); Platelet Count 339 K/mm3 (150-400); RDW Coefficient Variation 14.7 % (11.7-14.2); RDW Standard Deviation 49.7 fL (35.1-46.3); Red Blood Cell Count 3.53 M/mm3 (3.80-5.20); White Blood Cell Count 20.14 K/mm3 (4.00-11.30)
[2019-11-06 06:38] LABS: Anion Gap 7 mmol/L (6-16); Blood Urea Nitrogen 14 mg/dL (8-24); Bun/Creatinine Ratio 22.9 (12.0-20.0); CO2, Blood 26 mmol/L (21-32); Calcium, Blood 10.2 mg/dL (8.5-10.1); Chloride, Blood 101 mmol/L (98-108); Creatinine, Blood 0.61 mg/dL (0.40-1.00); Glomerular Filtration Rate >60 (60-); Glucose, Blood 126 mg/dL (70-99); Potassium, Blood 4.6 mmol/L (3.5-5.5); Sodium, Blood 134 mmol/L (136-145)
--- NOTE | 2019-11-06 17:37 | NUR ---
PT AOX4 AND COOPERATIVE OF CARE. PT HAS SEVERE PAIN WITH WOUNDS IN ADRIANNA AREA AND AROUND RECTUM. PT HAD CREAM APPLIED PER EMAR TO HELP WITH PAIN AND THIS WAS EFFECTIVE SHE ALSO HAS HAD ORAL PAIN MEDICATION PER EMAR. PT HAS BEEN ON BED REST AND CARTWRIGHT IN PLACE FLOWING WELL. PT HAS LEFT ROOM TO GO FOR SUPRA PUBIC CATH AT 1546. NO DISTRESS NOTED.
--- NOTE | 2019-11-07 04:15 | NUR ---
SUMMARY PT ARRIVED BACK TO FLOOR POST PROCEDURE. PT SUPRAPUBIC CATH DRAINING WELL. BLOOD WAS NOTED INITALLY BUT HAS CLEARED UP SIGNIFICANTLY. CATH SITE IS INTACT AND NOT BLEEDING. PT IN NO DISCOMFORT ON ARRIVAL. PT HAS BEEN HAVING SOME PAIN DURING SHIFT AND TX PER EMAR. PT HAD NO NOTED FEVERS OR CHILLS. PT HAS SLEPT WELL AND IS CURRENTLY SLEEPING. CALL LIGHT IN REACH.
[2019-11-07] MEDS ORDERED: PANT40 PO (11:48)
[2019-11-07] MEDS ORDERED: GABA400 PO (11:48)
--- NOTE | 2019-11-07 15:27 | NUR ---
PT DISCHARGE AT 1455 WITH DAUGHTER TO TRANSPORT. PT HAD ALL PAPERWORK REVIEWED AND EDUCATIONAL MATERIAL SENT. PT WAS EDUCATED ON KEEPING SUPRAPUBIC CATH EMPTY AND HOW TO DRAIN IT. PT WILL FOLLOW UP WITH HER PCP AND DR HERNANDEZ. PT CONTINUES TO HAVE PAIN FROM WOUNDS IN ADRIANNA AREA AND RECTAL AREA THIS AREA BLEEDS AND IS VERY TENDER TREATED PER EMAR. PT WAS ABLE TO GO IN WHEEL CHAIR AND WAS A ONE PERSON ASSIST INTO CAR. ALL PERSONAL BELONGINGS WITH PT.
== END 2019-11-07 14:48 | disposition home health service (06) ==
LOC: ER 12:58 → ERHOLD 12:59 → MEDS 12:59
PROVIDERS: Physician Assistant; ADMIT Internal Medicine
DX: N31.9 Neuromuscular dysfunction of bladder, unspecified (principal); I10 Essential (primary) hypertension; R00.0 Tachycardia, unspecified; K21.9 Gastro-esophageal reflux disease without esophagitis; E87.1 Hypo-osmolality and hyponatremia; L93.1 Subacute cutaneous lupus erythematosus; E83.52 Hypercalcemia; E78.5 Hyperlipidemia, unspecified; D64.9 Anemia, unspecified; D72.829 Elevated white blood cell count, unspecified; Z20.828 Contact with and (suspected) exposure to other viral communicable diseases; Z87.891 Personal history of nicotine dependence; Z79.899 Other long term (current) drug therapy; Z88.0 Allergy status to penicillin; Z88.1 Allergy status to other antibiotic agents; Z88.8 Allergy status to other drugs, medicaments and biological substances
CPT/HCPCS: 36415; 51702; 76998; 80048; 80053; 81001; 82330; 85025; 85610; 85730; 87077; 87086; 87186; 96372; 96374-59; 96376-59; 99152; 99153; 99284-25; A9270; A9270-GY; C1729; C1769; C1894; G0378; J1170; J1650; J2250; J2704; J3010; J7030; J7512; J7517; Q9967; U0002

== ENCOUNTER → 2019-11-05 | Outpatient (CLI) | payer MEDICARE, OTHER ==
[~2019-11-05] MED LIST changes: +ACET325 PO; +ALOCANE EMERGEN75 ML; +AMLO5 PO; +ANTIFUNGAL30 GM TOP; +ASCO500 PO; +Acetaminophen-1 EAC2 PO; +Augmentin 875-1 EACH PO; +CYAFAPYR PO; +Cellcept500 MG PO; +DOCU100 PO; +EUTHYROX50 MCG PO; +FAMO20 PO; +FOLI1 PO; +Fentanyl1 EACH TOP; +GABA400 PO; +LIQUACEL 100 LI30 ML PO; +MIRALAX119 GM PO; +Methotrexate2.5 MG PO; +OXYC10TA19 PO; +PANT40 PO; +PRED20 PO; +Silvadene20 GM TOP; +Simvastatin40 MG PO; +TELMISARTAN40 MG PO; +VISBIOME 112.51 EACH PO; +Vitamin D2000 UNIT PO; +ZINC SULFATE PO; +[UNRECOGNIZED DRUG - SUPPLY]
[2019-11-05 17:45] LABS: BASOPHILS ABSOLUTE AUTO 0.06 K/mm3 (0.00-0.23); BASOPHILS PERCENT AUTO 0 % (0-2); EOSINOPHILS ABSOLUTE AUTO 0.18 K/mm3 (0.00-0.68); EOSINOPHILS PERCENT AUTO 1 % (0-6); Hematocrit 37.5 % (33.0-51.0); Hemoglobin 11.8 g/dL (11.5-16.0); IMMATURE GRAN ABSOLUTE AUTO 0.47 K/mm3 (0.00-0.10); IMMATURE GRAN PERCENT AUTO 2 % (0-1); LYMPHOCYTES ABSOLUTE AUTO 3.12 K/mm3 (0.84-5.20); LYMPHOCYTES PERCENT AUTO 15 % (21-46); MONOCYTES ABSOLUTE AUTO 1.66 K/mm3 (0.16-1.47); MONOCYTES PERCENT AUTO 8 % (4-13); Mean Corpuscular HGB 29.2 pg (26.0-34.0); Mean Corpuscular HGB Conc 31.5 g/dL (31.5-36.5); Mean Corpuscular Volume 93 fL (80-100); Mean Platelet Volume 9.6 fL (9.1-12.4); NEUTROPHILS ABSOLUTE AUTO 15.61 K/mm3 (1.96-9.15); NEUTROPHILS PERCENT AUTO 74 % (41-73); Platelet Count 385 K/mm3 (150-400); RDW Coefficient Variation 14.7 % (11.7-14.2); RDW Standard Deviation 49.9 fL (35.1-46.3); Red Blood Cell Count 4.04 M/mm3 (3.80-5.20)
[2019-11-05 18:11] LABS: Alanine Aminotransfer (ALT/SGP 31 U/L (12-78); Albumin, Blood 2.8 g/dL (3.4-5.0); Albumin/Globulin Ratio 0.7 (0.8-1.8); Alk Phos 63 U/L (50-136); Anion Gap 8 mmol/L (6-16); Aspartate Aminotrans (AST/SGOT 11 U/L (12-37); Bilirubin, Total 0.4 mg/dL (0.1-1.0); Blood Urea Nitrogen 18 mg/dL (8-24); Bun/Creatinine Ratio 34.1 (12.0-20.0); CO2, Blood 26 mmol/L (21-32); Calcium, Blood 10.4 mg/dL (8.5-10.1); Chloride, Blood 96 mmol/L (98-108); Creatinine, Blood 0.53 mg/dL (0.40-1.00); Glomerular Filtration Rate >60 (60-); Glucose, Blood 90 mg/dL (70-99); Potassium, Blood 4.1 mmol/L (3.5-5.5); Sodium, Blood 130 mmol/L (136-145); Total Protein, Blood 6.8 g/dL (6.4-8.2)
== END | disposition home or self-care (01) ==
LOC: LAB SRC 12:51 → LAB SHORT 12:51
PROVIDERS: Dermatology
DX: L98.9 Disorder of the skin and subcutaneous tissue, unspecified (principal)
CPT/HCPCS: 80053; 85025